=== PATIENT | female | born 1985 | race African-American/Black ===

== ENCOUNTER 2017-02-25 13:36 | Emergency (ER) | payer OTHER ==
[~2017-02-25] VITALS: Ht 167.6 cm; Wt 111.0 kg
[~2017-02-25 13:36] MED LIST: ALBUTEROL SULF8.5 GM IH; ALEVE220 MG PO; BACTRIM,SEPT1 TABLET PO; BENTYL10 MG PO; CIPRO500 MG PO; FLUTICASONE PRO16 GM BOTH NARES; Implanon SQ; KEFLEX500 MG PO; LORATADINE10 M2 PO; NOHOMEMEDS; PRENATAL1 EACH PO; SLEEP AID25 M2 PO; VENTOLIN HFA18 GM IH; VICODIN 5-3001 EACH PO
[2017-02-25 14:11] LABS: HEMATOCRIT 39.8 % (36.0-46.0); MCH 24.8 PG (29.0-34.0); MCHC 31.7 G/DL (30.0-36.0); MCV 78.2 FL (83-99); MEAN PLAT.VOLUME 9.3 uM^3 (9.5-12.4); PLATELET COUNT 318 K/uL (156-360); RBC DIS.WIDTH-CV 13.8 % (11.8-14.6); RBC DIS.WIDTH-SD 39.3 % (39-53); RED BLOOD COUNT 5.09 M/uL (3.80-5.20); WHITE BLOOD COUNT 8.1 K/uL (4.1-10.2)
[2017-02-25 14:22] LABS: CHLORIDE 107 mEq/L (99-109); D-DIMER ELISA 0.46 mg/L FEU (< 0.57); POTASSIUM 3.6 mEq/L (3.7-5.4); SODIUM 139 mEq/L (136-147)
[2017-02-25 14:23] LABS: GLUCOSE 91 mg/dL (70-99)
[2017-02-25 14:25] LABS: ANION GAP 10 MEQ/L (2-14)
[2017-02-25 14:27] LABS: GFR ESTIMATE (CALCULATED) > 59 mL/min/
[2017-02-25 14:28] LABS: UREA NITROGEN (BUN) 11 mg/dL (9-23)
[2017-02-25 14:33] LABS: TROP-I INTERPRETATION NEGATIVE; TROPONIN-I < 0.01 ng/mL (0.0-0.30)
[2017-02-25] MEDS ORDERED: PREDNISONE50 MG PO (15:38)
[2017-02-25] MEDS ORDERED: ULTRAM50 MG PO (15:38)
[2017-02-25 15:53] VITALS: BP 124/88
== END 2017-02-25 15:54 | disposition home or self-care (01) ==
LOC: EME 13:36
DX: R09.1 Pleurisy (principal); Z87.891 Personal history of nicotine dependence
CPT/HCPCS: 71020; 80048; 84484; 85027; 85379; 93005; 99281; 99285; J1885